=== PATIENT | male | born 1950 | race African-American/Black ===

== ENCOUNTER 2019-04-06 14:22 | Inpatient (IN) | payer MEDICARE, OTHER ==
[~2019-04-06] VITALS: Ht 188 cm; Wt 78.0 kg
[2019-04-06] MEDS ORDERED: LORAZEPAM 2MG/ML CPJ ONE (16:33)
[2019-04-06] MEDS ORDERED: SODIUM CHLORIDE 0.9% 1,000 ML IV ONE (16:44)
[2019-04-06] MEDS ORDERED: LORAZEPAM 2MG/ML CPJ IM ONE (16:45)
[2019-04-06] MEDS ORDERED: VANCOMYCIN 1 G PREMIX 200 ML IV ONE (16:45)
[2019-04-06] MEDS ORDERED: PIPERACILLIN/TAZ 3.375G PREMIX 50 ML IV ONE (16:45)
[2019-04-06 17:14] LABS: BASOPHILS % 0.6 % (0.0-2.0); EOSINOPHILS % 0.7 % (0.0-5.0); HEMATOCRIT. 38.7 % (42.0-52.0); HEMOGLOBIN. 12.3 g/dL (14.0-18.0); LYMPHOCYTES % 18.8 % (20.0-50.0); MEAN CORPUSCULAR HEMOGLOBIN 29.7 pg (28.0-32.0); MEAN CORPUSCULAR VOLUME 93.3 fL (80.0-94.0); MONOCYTES % 9.9 % (2.0-8.0); PLATELET 161 x1000/uL (130-400); RED BLOOD CELL COUNT 4.14 mill/uL (4.7-6.1); RED CELL DISTRIBUTION WIDTH 15.1 % (11.6-14.6)
[2019-04-06 17:18] LABS: CHLORIDE 121 mEq/L (98-107)
[2019-04-06 17:19] LABS: PROTHROMBIN TIME 10.7 sec (9.6-11.0)
[2019-04-06 18:22] LABS: CLARITY URINE CLEAR (CLEAR); COLOR URINE YELLOW (YELLOW); KETONES URINE TRACE (NEGATIVE); LEUKOCYTE ESTERASE URINE 2+ (NEGATIVE); NITRITE URINE NEGATIVE (NEGATIVE); OCCULT BLOOD URINE 1+ (NEGATIVE); PH URINE 5.5 (4.5-8.0); PROTEIN URINE 1+ (NEGATIVE); SPECIFIC GRAVITY URINE 1.023 (1.005-1.030)
[2019-04-06] MEDS ORDERED: SODIUM CHLORIDE 0.9% 1000ML BAG (SEPSIS BOLUS) IV ONE (19:15)
[2019-04-06] MEDS ORDERED: ONDANSETRON HCL 4MG/2ML INJ IV PRN (19:30)
[2019-04-06] MEDS ORDERED: MAGNESIUM/ALUMINUM HYDROXIDE/SIMETHICONE 30ML UDC PO PRN (19:30)
[2019-04-06] MEDS ORDERED: CLONIDINE 0.1MG TABLET PO PRN (19:30)
[2019-04-06] MEDS ORDERED: NITROGLYCERIN 0.4MG TABLET SL SL PRN (19:30)
[2019-04-06] MEDS ORDERED: GUAIFENESIN 200MG/10ML SUGAR FREE UDC PO PRN (19:30)
[2019-04-06] MEDS ORDERED: IPRATROPIUM/ALBUTEROL 0.5-3(2.5)MG/3ML NEB HHN PRN (19:30)
[2019-04-06] MEDS ORDERED: ACETAMINOPHEN 325MG TABLET PO PRN (19:30)
[2019-04-06] MEDS ORDERED: TRAMADOL 50MG TABLET PO PRN (19:30)
[2019-04-06] MEDS ORDERED: KETOROLAC 15MG/ML VIAL IV PRN (19:30)
[2019-04-06] MEDS ORDERED: DOCUSATE SODIUM 100MG CAPSULE PO PRN (19:30)
[2019-04-06 20:08] LABS: T4 FREE 1.11 ng/dL (0.76-1.46)
[2019-04-06 20:54] LABS: FOLIC ACID (FOLATE) SERUM 18.2 ng/mL (>5.38)
[2019-04-06 21:06] LABS: *AMPHETAMINES SCREEN URINE NEGATIVE (NEGATIVE); *BARBITURATES SCREEN URINE NEGATIVE (NEGATIVE); *BENZODIAZEPINES SCREEN URINE NEGATIVE (NEGATIVE); *COCAINE SCREEN URINE NEGATIVE (NEGATIVE)
[2019-04-06 21:07] LABS: CANNABINOID URINE SCREEN NEGATIVE (NEGATIVE); METHADONE URINE SCREEN NEGATIVE (NEGATIVE); OPIATES URINE SCREEN NEGATIVE (NEGATIVE); PHENCYCLIDINE URINE SCREEN NEGATIVE (NEGATIVE)
[2019-04-06 22:30] VITALS: BP 116/72
[2019-04-06 22:40] VITALS: BP 116/72
[2019-04-06] MEDS: METOPROLOL TARTRATE 25MG TABLET PO SCH (23:06)
[2019-04-06] MEDS: FAMOTIDINE 20MG TABLET PO SCH (23:06)
[2019-04-06] MEDS: LORAZEPAM 0.5MG TABLET PO PRN (23:06)
[2019-04-06] MEDS: DEXT 5%/0.45% NACL 1000ML 1,000 ML IV SCH (23:09)
[2019-04-06] MEDS: ASCORBIC ACID 500 MG TABLET PO SCH (23:09)
[2019-04-06] MEDS ORDERED: VANCOMYCIN 1 G PREMIX 200 ML IV SCH (23:30)
[2019-04-07] MEDS: ZOLPIDEM TARTRATE 5MG TABLET PO PRN ×2 (00:52→21:47)
[2019-04-07] MEDS ORDERED: PIPERACILLIN/TAZ 3.375G PREMIX 50 ML IV SCH (02:00)
[2019-04-07] MEDS ORDERED: PIPERACILLIN/TAZOBACTAM 3.375 G in DEXT 5% WATER 100 ML IV SCH (02:00)
[2019-04-07] MEDS ORDERED: LEVOFLOXACIN 500MG PREMIX 100 ML IV SCH (03:00)
[2019-04-07 04:00] VITALS: BP 86/52
[2019-04-07] MEDS ORDERED: PNEUMOCOCCAL 23-VAL P-SAC VAC 0.5 ML IM ONE (06:00)
[2019-04-07 06:04] LABS: CREATINE KINASE MB FRACTION 8.3 ng/mL (0.5-3.6)
[2019-04-07 08:00] VITALS: BP 112/60
[2019-04-07] MEDS: METOPROLOL TARTRATE 25MG TABLET PO SCH ×2 (09:00→20:55)
[2019-04-07] MEDS: FAMOTIDINE 20MG TABLET PO SCH (09:46)
[2019-04-07] MEDS: ASPIRIN 325MG EC TABLET PO SCH (09:46)
[2019-04-07] MEDS: ZINC SULFATE 220 MG ( 50 ) CAPSULE PO SCH (09:46)
[2019-04-07] MEDS: ASCORBIC ACID 500 MG TABLET PO SCH ×2 (09:46→20:43)
[2019-04-07] MEDS: DEXT 5%/0.45% NACL 1000ML 1,000 ML IV SCH ×2 (09:47→18:49)
[2019-04-07 12:00] VITALS: BP 113/68
[2019-04-07] MEDS: PIPERACILLIN/TAZOBACTAM 3.375 G in DEXT 5% WATER 100 ML IV SCH ×3 (12:58→23:34)
[2019-04-07 16:00] VITALS: BP 106/60
[2019-04-07] MEDS: VANCOMYCIN 1 G PREMIX 200 ML IV SCH (18:51)
[2019-04-07 20:00] VITALS: BP 122/56
[2019-04-07] MEDS: LORAZEPAM 0.5MG TABLET PO PRN (20:43)
[2019-04-08] VITALS: BP 101/77
[2019-04-08] MEDS ORDERED: LEVOFLOXACIN 250MG PREMIX 50 ML IV SCH (03:00)
[2019-04-08] MEDS: DEXT 5%/0.45% NACL 1000ML 1,000 ML IV SCH ×2 (03:32→15:39)
[2019-04-08 04:00] VITALS: BP 133/61
[2019-04-08] MEDS: PIPERACILLIN/TAZOBACTAM 3.375 G in DEXT 5% WATER 100 ML IV SCH ×3 (06:51→17:49)
[2019-04-08 08:00] VITALS: BP 106/55
[2019-04-08] MEDS: FAMOTIDINE 20MG TABLET PO SCH (08:25)
[2019-04-08] MEDS: ASPIRIN 325MG EC TABLET PO SCH (08:25)
[2019-04-08] MEDS: ASCORBIC ACID 500 MG TABLET PO SCH ×2 (08:25→21:58)
[2019-04-08] MEDS: ZINC SULFATE 220 MG ( 50 ) CAPSULE PO SCH (08:25)
[2019-04-08] MEDS: METOPROLOL TARTRATE 25MG TABLET PO SCH ×2 (08:26→21:00)
[2019-04-08 12:00] VITALS: BP 97/56
[2019-04-08 12:34] LABS: BASOPHILS % 0.4 % (0.0-2.0); EOSINOPHILS % 1.4 % (0.0-5.0); HEMATOCRIT. 38.3 % (42.0-52.0); HEMOGLOBIN. 12.3 g/dL (14.0-18.0); LYMPHOCYTES % 17.5 % (20.0-50.0); MEAN CORPUSCULAR HEMOGLOBIN 29.7 pg (28.0-32.0); MEAN CORPUSCULAR VOLUME 92.8 fL (80.0-94.0); MEAN PLATELET VOLUME 9.1 fl (7.4-10.4); NEUTROPHILS % 71.7 % (40.0-76.0); PLATELET 146 x1000/uL (130-400); RED BLOOD CELL COUNT 4.12 mill/uL (4.7-6.1); RED CELL DISTRIBUTION WIDTH 14.7 % (11.6-14.6)
[2019-04-08] MEDS: VANCOMYCIN 1 G PREMIX 200 ML IV SCH (13:01)
[2019-04-08 16:00] VITALS: BP 105/81
[2019-04-08 20:00] VITALS: BP 150/69
[2019-04-09] VITALS: BP 146/77
[2019-04-09] MEDS: PIPERACILLIN/TAZOBACTAM 3.375 G in DEXT 5% WATER 100 ML IV SCH ×4 (00:29→17:58)
[2019-04-09] MEDS: DEXT 5%/0.45% NACL 1000ML 1,000 ML IV SCH ×3 (02:04→21:10)
[2019-04-09] MEDS: LORAZEPAM 0.5MG TABLET PO PRN ×3 (02:04→18:11)
[2019-04-09 04:00] VITALS: BP 126/75
[2019-04-09] MEDS: VANCOMYCIN 1 G PREMIX 200 ML IV SCH (06:31)
[2019-04-09 08:00] VITALS: BP 155/66
[2019-04-09] MEDS: ASCORBIC ACID 500 MG TABLET PO SCH ×2 (09:53→21:10)
[2019-04-09] MEDS: ZINC SULFATE 220 MG ( 50 ) CAPSULE PO SCH (09:53)
[2019-04-09] MEDS: ASPIRIN 325MG EC TABLET PO SCH (09:53)
[2019-04-09] MEDS: FAMOTIDINE 20MG TABLET PO SCH (09:53)
[2019-04-09] MEDS: METOPROLOL TARTRATE 25MG TABLET PO SCH ×2 (09:54→21:00)
[2019-04-09 12:00] VITALS: BP 146/60
[2019-04-09 20:00] VITALS: BP 122/59
[2019-04-09] MEDS: ZOLPIDEM TARTRATE 5MG TABLET PO PRN (21:10)
[2019-04-10] VITALS (7 sets, daily range): BP systolic 103–174; BP diastolic 43–142
[2019-04-10] MEDS: VANCOMYCIN 1 G PREMIX 200 ML IV SCH (00:36)
[2019-04-10] MEDS: PIPERACILLIN/TAZOBACTAM 3.375 G in DEXT 5% WATER 100 ML IV SCH ×3 (00:36→12:20)
[2019-04-10] MEDS: LORAZEPAM 0.5MG TABLET PO PRN (04:46)
[2019-04-10] MEDS: DEXT 5%/0.45% NACL 1000ML 1,000 ML IV SCH (06:49)
[2019-04-10] MEDS: METOPROLOL TARTRATE 25MG TABLET PO SCH (09:51)
[2019-04-10] MEDS: ASPIRIN 325MG EC TABLET PO SCH (09:51)
[2019-04-10] MEDS: ZINC SULFATE 220 MG ( 50 ) CAPSULE PO SCH (09:51)
[2019-04-10] MEDS: FAMOTIDINE 20MG TABLET PO SCH (09:52)
[2019-04-10] MEDS: ASCORBIC ACID 500 MG TABLET PO SCH (09:52)
[2019-04-10] MEDS ORDERED: APIXABAN 2.5 MG TABLET PO SCH (18:00)
== END 2019-04-10 16:18 | DRG 871 ==
LOC: ER 14:22 → 5WST 19:09 → EDBEDREQSVC 19:10 → EDBEDREQ 19:10 → ENRESERV 20:22
PROVIDERS: ADMIT Internal Medicine; ATTEND Internal Medicine
DX: A41.9 Sepsis, unspecified organism (principal); N17.0 Acute kidney failure with tubular necrosis; G92 Toxic encephalopathy; N39.0 Urinary tract infection, site not specified; E87.0 Hyperosmolality and hypernatremia; F03.91 Unspecified dementia, unspecified severity, with behavioral disturbance; D63.8 Anemia in other chronic diseases classified elsewhere; E11.9 Type 2 diabetes mellitus without complications; J44.9 Chronic obstructive pulmonary disease, unspecified; L89.159 Pressure ulcer of sacral region, unspecified stage; S80.812A Abrasion, left lower leg, initial encounter; S80.811A Abrasion, right lower leg, initial encounter; R74.0 Nonspecific elevation of levels of transaminase and lactic acid dehydrogenase [LDH]; R65.20 Severe sepsis without septic shock; L89.151 Pressure ulcer of sacral region, stage 1; Z74.01 Bed confinement status; Z79.899 Other long term (current) drug therapy; X58.XXXA Exposure to other specified factors, initial encounter; Y93.89 Activity, other specified; Y92.89 Other specified places as the place of occurrence of the external cause; Y99.8 Other external cause status
CPT/HCPCS: 36415; 71045; 80048; 80202; 80305; 81003; 82550; 82553; 82607; 82746; 83036; 83540; 83550; 83605; 83880; 84134; 84145; 84439; 84443; 84484; 90732; 93005; 93306; 93970; 99291; A6261; J1956; J2060; J2543; J3370; J7030; J7060